=== PATIENT | female | born 1940 | race Caucasian/White ===

== ENCOUNTER 2025-06-22 11:00 | Outpatient (RCR) | payer SELFPAY | END 2025-09-13 23:59 | disposition home or self-care (01) | LOC: ANHBWCAUD 11:00 | PROVIDERS: PCP Internal Medicine; Visit Provider Internal Medicine | DX: Z46.1 Encounter for fitting and adjustment of hearing aid (principal) | CPT/HCPCS: 92593; 99199 ==